=== PATIENT | female | born 1955 | race Caucasian/White ===

== ENCOUNTER → 2017-09-26 | Outpatient (CLI) | payer OTHER ==
--- NOTE | 2017-09-27 09:12 | MM ---
Reason for exam: screening (asymptomatic). Last mammogram was performed 1 year ago. History: Patient is postmenopausal. Family history of breast cancer in paternal aunt. Took estrogen for 1 year beginning at age 56. Took progesterone for 6 months beginning at age 53. Took unspecified hormones for 1 year 2 months. Physical Findings: A clinical breast exam by your physician is recommended on an annual basis and results should be correlated with mammographic findings. MG Screening Mammo w CAD Bilateral CC and MLO view(s) were taken. Prior study comparison: September 20, 2016, bilateral MG screening mammo w CAD. September 01, 2015, bilateral MG screening mammo w CAD. The breast tissue is extremely dense which could obscure a lesion on mammography. There is no discrete abnormality. No significant changes when compared with prior studies. ASSESSMENT: Negative, BI-RAD 1 RECOMMENDATION: Routine screening mammogram of both breasts in 1 year.
== END | disposition home or self-care (01) ==
LOC: RADMAMWWP 14:01
PROVIDERS: ATTEND Obstetrics & Gynecology
DX: Z12.31 Encounter for screening mammogram for malignant neoplasm of breast (principal)

== ENCOUNTER → 2018-09-27 | Outpatient (CLI) | payer BC ==
--- NOTE | 2018-10-03 09:50 | MM ---
Reason for exam: screening (asymptomatic). Last mammogram was performed 1 year ago. History: Patient is postmenopausal. Family history of breast cancer in paternal aunt. Took estrogen for 1 year beginning at age 56. Took progesterone for 6 months beginning at age 53. Took unspecified hormones for 1 year 2 months. Physical Findings: A clinical breast exam by your physician is recommended on an annual basis and results should be correlated with mammographic findings. MG 3D Screening Mammo W/Cad Bilateral CC and MLO view(s) were taken. Prior study comparison: September 26, 2017, bilateral MG screening mammo w CAD. September 20, 2016, bilateral MG screening mammo w CAD. The breast tissue is heterogeneously dense. This may lower the sensitivity of mammography. There is no discrete abnormality. ASSESSMENT: Negative, BI-RAD 1 RECOMMENDATION: Routine screening mammogram of both breasts in 1 year.
== END | disposition home or self-care (01) ==
LOC: RADMAMWWP 13:05
PROVIDERS: ATTEND Obstetrics & Gynecology
DX: Z12.31 Encounter for screening mammogram for malignant neoplasm of breast (principal)
CPT/HCPCS: 77063; 77067

== ENCOUNTER → 2019-09-29 | Outpatient (CLI) | payer BC ==
--- NOTE | 2019-10-03 12:31 | MM ---
Reason for exam: screening (asymptomatic). Last mammogram was performed 1 year ago. History: Patient is postmenopausal. Family history of breast cancer in paternal aunt. Took estrogen for 1 year beginning at age 56. Took progesterone for 6 months beginning at age 53. Took unspecified hormones for 1 year 2 months. Physical Findings: A clinical breast exam by your physician is recommended on an annual basis and results should be correlated with mammographic findings. MG 3D Screening Mammo W/Cad Bilateral CC and MLO view(s) were taken. Prior study comparison: September 27, 2018, bilateral MG 3d screening mammo w/cad. September 26, 2017, bilateral MG screening mammo w CAD. The breast tissue is heterogeneously dense. This may lower the sensitivity of mammography. There is no discrete abnormality. ASSESSMENT: Negative, BI-RAD 1 RECOMMENDATION: Routine screening mammogram of both breasts in 1 year.
== END | disposition home or self-care (01) ==
LOC: RADMAMWWP 10:01
PROVIDERS: ATTEND Obstetrics & Gynecology
DX: Z12.31 Encounter for screening mammogram for malignant neoplasm of breast (principal); Z80.3 Family history of malignant neoplasm of breast
CPT/HCPCS: 77063; 77067

== ENCOUNTER → 2020-11-17 | Outpatient (CLI) | payer OTHER ==
--- NOTE | 2020-11-19 11:05 | MM ---
Reason for exam: screening (asymptomatic). Last mammogram was performed 1 year and 2 months ago. History: Patient is postmenopausal. Family history of breast cancer in paternal aunt. Took estrogen for 1 year beginning at age 56. Took progesterone for 6 months beginning at age 53. Took unspecified hormones for 1 year 2 months. Physical Findings: A clinical breast exam by your physician is recommended on an annual basis and results should be correlated with mammographic findings. MG 3D Screening Mammo W/Cad Bilateral CC and MLO view(s) were taken. Prior study comparison: September 29, 2019, bilateral MG 3d screening mammo w/cad. September 27, 2018, bilateral MG 3d screening mammo w/cad. The breast tissue is heterogeneously dense. This may lower the sensitivity of mammography. There is no discrete abnormality. No significant changes when compared with prior studies. ASSESSMENT: Negative, BI-RAD 1 RECOMMENDATION: Routine screening mammogram of both breasts in 1 year.
== END | disposition home or self-care (01) ==
LOC: RADMAMWWP 08:13
PROVIDERS: ATTEND Obstetrics & Gynecology
DX: Z12.31 Encounter for screening mammogram for malignant neoplasm of breast (principal); Z80.3 Family history of malignant neoplasm of breast
CPT/HCPCS: 77063; 77067

== ENCOUNTER → 2022-03-03 | Outpatient (CLI) | payer OTHER ==
--- NOTE | 2022-03-07 08:37 | MM ---
Reason for Exam: Screening (asymptomatic). Last mammogram was performed 1 year(s) and 3 month(s) ago. Patient History: Menarche at age 18. First Full-Term at age 25. Left ovary removed at age 56. Right ovary removed at age 56. Hysterectomy at age 56. Postmenopausal. Currently using Estrogen, beginning at age 56 for 1 year. Currently using Progesterone, for 6 months. Paternal aunt had breast cancer at or over age 50. Risk Values: Vandana 5 year model risk: 1.3%. NCI Lifetime model risk: 5.3%. Film Views: Bilateral CC views were taken. Bilateral MLO views were taken. Prior Study Comparison: 09/27/2018 Bilateral Screening Mammogram, [facility]. 09/29/2019 Bilateral Screening Mammogram, [facility]. 11/17/2020 Bilateral Screening Mammogram, [facility]. Tissue Density: The breast tissue is heterogeneously dense. This may lower the sensitivity of mammography. Findings: Analyzed By CAD. There is no suspicious group of microcalcifications or new suspicious mass in either breast. Overall Assessment: Negative, BI-RAD 1 Management: Screening Mammogram of both breasts in 1 year. A clinical breast exam by your physician is recommended on an annual basis and results should be correlated with mammographic findings. Electronically signed and approved by: Dudley Bae M.D.
== END | disposition home or self-care (01) ==
LOC: RADMAMWWP 16:28
PROVIDERS: ATTEND Obstetrics & Gynecology
DX: Z12.31 Encounter for screening mammogram for malignant neoplasm of breast (principal); Z80.3 Family history of malignant neoplasm of breast
CPT/HCPCS: 77063; 77067

== ENCOUNTER → 2023-03-06 | Outpatient (CLI) | payer MEDICARE, BC ==
--- NOTE | 2023-03-07 19:05 | MM ---
Reason for Exam: Screening (asymptomatic). Last screening mammogram was performed 12 month(s) ago. Patient History: Menarche at age 18. First Full-Term at age 25. Left ovary removed at age 56. Right ovary removed at age 56. Hysterectomy at age 56. Postmenopausal. Currently using Estrogen, beginning at age 56 for 1 year. Currently using Progesterone, for 6 months. Paternal aunt had breast cancer at or over age 50. Risk Values: Vandana 5 year model risk: 1.4%. NCI Lifetime model risk: 5.1%. Prior Study Comparison: 09/29/2019 Bilateral Screening Mammogram, [facility]. 11/17/2020 Bilateral Screening Mammogram, [facility]. 03/03/2022 Bilateral MG 3D screening mammo w/cad, [facility]. Tissue Density: The breast tissue is heterogeneously dense. This may lower the sensitivity of mammography. Findings: Analyzed By CAD. Chronic nodularity lateral right breast. Areas of asymmetric density did not persist on 3 images. There is no suspicious group of microcalcifications or new suspicious mass in either breast. Overall Assessment: Benign, BI-RAD 2 Management: Screening Mammogram of both breasts in 1 year. . Patient should continue monthly self-breast exams. A clinical breast exam by your physician is recommended on an annual basis. This exam should not preclude additional follow-up of suspicious palpable abnormalities. Note on Vandana scores and lifetime risk: 1. A Vandana score greater than 3% is considered moderate risk. If this is the case, consider specialist referral to assess eligibility for a risk reducing agent. 2. If overall lifetime risk for the development of breast cancer is 20% or higher, the patient may qualify for future screening with alternating mammogram and breast MRI. Electronically signed and approved by: Josue Sanders M.D. Radiologist
== END | disposition home or self-care (01) ==
LOC: RADMAMWWP 16:11
PROVIDERS: ATTEND Family Medicine
DX: Z12.31 Encounter for screening mammogram for malignant neoplasm of breast (principal); Z78.0 Asymptomatic menopausal state; Z80.3 Family history of malignant neoplasm of breast
CPT/HCPCS: 77063; 77067

== ENCOUNTER → 2023-03-06 | Outpatient (CLI) | payer MEDICARE, BC ==
--- NOTE | 2023-03-07 19:01 | BD ---
EXAMINATION TYPE: Axial Bone Density DATE OF EXAM: 03/06/2023 CLINICAL HISTORY: 67 years old Female. ICD-10 CODE: M89.9 DISORDER OF BONE Height: 64.5 Weight: 163.0 FRAX RISK QUESTIONS: Alcohol (3 or more units per day): no Family History (Parent hip fracture): no Glucocorticoids (More than 3mos): no (Ex: prednisone, prednisolone, methylprednisolone, dexamethasone, and hydrocortisone). History of Fracture in Adulthood: yes Secondary Osteoporosis: 1. Type 1 Diabetes: yes 2. Hyperthyroidism: no 3. Menopause before 45: no 4. Malnutrition: no 5. Chronic liver disease: no Rheumatoid Arthritis: no Current Tobacco Use: no RISK FACTORS HISTORY OF: Hip Fracture (Right/Left): left Surgery to Spine/Hip(right/left)/Wrist (right/left): yes- left When: 10 years ago Family History of Osteoporosis: no Active: no Diet low in dairy products/other sources of calcium: no Postmenopausal woman: yes Take estrogen and/or progesterone medications: yes How lon years Lost more than 2 inches in height since high school: no MEDICATIONS: Thyroid Medications: armour thyroid How Lon years Additional History: EXAM MEASUREMENTS: Bone mineral densitometry was performed using the [employer] System. Bone mineral density as measured about the Lumbar spine is: ----- L1-L4(G/cm2): 1.070 T Score Values are as follows: ----- L1: 1.5 ----- L2: -1.0 ----- L3: -0.2 ----- L4: -1.2 ----- L1-L4: -0.9 Z Score Values are as follows: ----- L1: -0.2 ----- L2: 0.3 ----- L3: 1.1 ----- L4: 0.1 ----- L1-L4: 0.4 Bone mineral density : baseline Bone mineral density about the R hip (g/cm2): 0.894 T Score values are as follows: -----R Neck: 1.5 -----R Total: -0.2 Z Score values are as follows: -----R Neck: -0.9 -----R Total: 0.1 Bone mineral density : baseline FRAX%s: The graph provided illustrates a 14.5% chance for a major osteoporotic fx and a 1.5 % chance for the hips probability for fx in 10 years time. IMPRESSION: Osteopenia (T Score between -2.5 and -1). There is slightly increased risk of fracture and the patient may be considered for treatment. Re-Screen 2-5 years. NOTE: T-SCORE=SD OF THE YOUNG ADULT MEAN.
== END | disposition home or self-care (01) ==
LOC: RADBDWWP 16:09
PROVIDERS: ATTEND Family Medicine
DX: M89.9 Disorder of bone, unspecified (principal)
CPT/HCPCS: 77080

== ENCOUNTER → 2024-08-12 | Outpatient (CLI) | payer MEDICARE, BC ==
--- NOTE | 2024-08-13 18:33 | US ---
EXAMINATION TYPE: US thyroid st tissue head/neck DATE OF EXAM: 08/12/2024 COMPARISON: NONE CLINICAL INDICATION: Female, 68 years old with history of E03.9 HYPOTHYROIDISM, UNSPECIFIED; Hypothyr oid, pt states on thyroid meds x many years TECHNIQUE: Grayscale and color Doppler imaging of the thyroid gland. FINDINGS: GLAND SIZE: Right Lobe: 4.0 x 1.4 x 1.2 cm Overall Parenchyma: Slightly heterogeneous Left Lobe: 3.4 x 1.5 x 1.2 cm Overall Parenchyma: Heterogeneous Isthmus Thickness: 0.3 cm NODULES RIGHT: # of nodules measured on right: 0 LEFT: # of nodules measured on left: 0 ISTHMUS: # of nodules measured in the isthmus: 0 Bilateral neck scanned, no evidence of lymphadenopathy. Heterogeneous thyroid without evidence of nod ules IMPRESSION: No suspicious thyroid nodules [email or web address] [facility], , 08/13/2024 6:31 PM
== END | disposition home or self-care (01) ==
LOC: RADUSWWP 15:59
PROVIDERS: ATTEND Obstetrics & Gynecology
DX: E03.9 Hypothyroidism, unspecified (principal)
CPT/HCPCS: 76536

== ENCOUNTER → 2025-03-31 | Outpatient (CLI) | payer MEDICARE, BC ==
--- NOTE | 2025-04-01 08:24 | MM ---
Reason for Exam: Screening (asymptomatic). Last mammogram was performed 2 year(s) and 1 month(s) ago. Patient History: Menarche at age 18. First Full-Term at age 25. Left ovary removed at age 56. Right ovary removed at age 56. Hysterectomy at age 56. Postmenopausal. Currently using Estrogen, beginning at age 56 for 1 year. Currently using Progesterone, for 6 months. Paternal aunt had breast cancer, age 50. Risk Values: Vandana 5 year model risk: 1.4%. NCI Lifetime model risk: 4.8%. Prior Study Comparison: 11/17/2020 Bilateral Screening Mammogram, [facility]. 03/03/2022 Bilateral MG 3D screening mammo w/cad, [facility]. 03/06/2023 Bilateral MG 3D screening mammo w/cad, [facility]. Tissue Density: The breasts are heterogeneously dense, which may obscure small masses. Findings: Analyzed By CAD. Right breast: There is no suspicious group of microcalcifications or new suspicious mass. Left breast: New asymmetry left breast MLO view 6.6 cm the nipple measuring middle depth and slightly inferior. Not fully seen on cc view. Overall Assessment: Incomplete: need additional imaging evaluation, BI-RAD 0 Management: Diagnostic Mammogram of the left breast. Spot compression imaging left MLO view middle to posterior depth. [facility] will attempt to contact patient to return for supplemental views and ultrasound if indicated. Patient should continue monthly self-breast exams. A clinical breast exam by your physician is recommended on an annual basis. This exam should not preclude additional follow-up of suspicious palpable abnormalities. Note on Vandana scores and lifetime risk: 1. A Vandana score greater than 3% is considered moderate risk. If this is the case, consider specialist referral to assess eligibility for a risk reducing agent. 2. If overall lifetime risk for the development of breast cancer is 20% or higher, the patient may qualify for future screening with alternating mammogram and breast MRI. [facility], , 04/01/2025 8:20 AM. Electronically signed and approved by: Wolfgang Corley DO
== END | disposition home or self-care (01) ==
LOC: RADMAMWWP 16:48
PROVIDERS: ATTEND Obstetrics & Gynecology
DX: Z12.31 Encounter for screening mammogram for malignant neoplasm of breast (principal); R92.333 Mammographic heterogeneous density, bilateral breasts; Z78.0 Asymptomatic menopausal state; Z80.3 Family history of malignant neoplasm of breast
CPT/HCPCS: 77063; 77067

== ENCOUNTER → 2025-04-02 | Outpatient (CLI) | payer MEDICARE, BC ==
--- NOTE | 2025-04-02 12:04 | MM ---
Reason for Exam: Additional evaluation requested from abnormal screening. Last screening mammogram was performed less than 1 month ago. Patient History: Menarche at age 18. First Full-Term at age 25. Left ovary removed at age 56. Right ovary removed at age 56. Hysterectomy at age 56. Postmenopausal. Currently using Estrogen, beginning at age 56 for 1 year. Currently using Progesterone, for 6 months. Paternal aunt had breast cancer, age 50. Risk Values: Vandana 5 year model risk: 1.4%. NCI Lifetime model risk: 4.8%. Prior Study Comparison: 03/03/2022 Bilateral MG 3D screening mammo w/cad, [facility]. 03/06/2023 Bilateral MG 3D screening mammo w/cad, [facility]. 03/31/2025 Bilateral MG 3D screening mammo w/cad, [facility]. Tissue Density: Left: The breasts are heterogeneously dense, which may obscure small masses. Findings: Analyzed By CAD. There remains a mass in the lower aspect of the MLO view approximately 5.6 cm from the nipple. There remains a mass in the lower aspect of the MLO view approximately 5.6 cm from the nipple. No clearly seen on cc view. There remains a asymmetry in the lower aspect of the MLO view approximately 5.6 cm from the nipple. No clearly seen on cc view. Overall Assessment: Incomplete: need additional imaging evaluation, BI-RAD 0 Management: Diagnostic Breast Ultrasound of the left breast. Ultrasound imaging of the lower half of the left breast proximal 5-6 cm from the nipple. Results were given to the patient verbally at the time of exam. Patient should continue monthly self-breast exams. A clinical breast exam by your physician is recommended on an annual basis. This exam should not preclude additional follow-up of suspicious palpable abnormalities. Note on Vandana scores and lifetime risk: 1. A Vandana score greater than 3% is considered moderate risk. If this is the case, consider specialist referral to assess eligibility for a risk reducing agent. 2. If overall lifetime risk for the development of breast cancer is 20% or higher, the patient may qualify for future screening with alternating mammogram and breast MRI. [facility], , 04/02/2025 12:01 PM. Electronically signed and approved by: Wolfgang Corley DO
--- NOTE | 2025-04-02 12:37 | USB ---
Reason for Exam: Additional evaluation requested from abnormal screening. Patient History: Menarche at age 18. First Full-Term at age 25. Left ovary removed at age 56. Right ovary removed at age 56. Hysterectomy at age 56. Postmenopausal. Currently using Estrogen, beginning at age 56 for 1 year. Currently using Progesterone, for 6 months. Paternal aunt had breast cancer, age 50. Risk Values: Vandana 5 year model risk: 1.4%. NCI Lifetime model risk: 4.8%. Prior Study Comparison: 03/03/2022 Bilateral MG 3D screening mammo w/cad, [facility]. 03/06/2023 Bilateral MG 3D screening mammo w/cad, [facility]. 03/31/2025 Bilateral MG 3D screening mammo w/cad, [facility]. Findings: The whole breast of the left breast, the axilla of the left breast and the retroareolar of the left breast were scanned. Technique utilized:US breast workup complete LT Image; Ultrasound imaging of: All 4 quadrants, the retroareolar region and axilla. Hypoechoic irregular shaped mass that is taller than wide at 9:00 6 cm from the nipple measuring 10 x 10 x 4 mm. Negative left axilla. Overall Assessment: Highly suggestive of malignancy, BI-RAD 5 Management: Ultrasound Core Biopsy of the left breast. A clinical breast exam by your physician is recommended on an annual basis and results should be correlated with mammographic findings. This exam should not preclude additional follow-up of suspicious palpable abnormalities. Results were given to the patient verbally at the time of exam. [facility], , 04/02/2025 12:25 PM. Electronically signed and approved by: Wolfgang Corley DO
== END | disposition home or self-care (01) ==
LOC: RADMAMWWP 11:31
PROVIDERS: ATTEND Obstetrics & Gynecology
DX: R92.8 Other abnormal and inconclusive findings on diagnostic imaging of breast (principal); R92.332 Mammographic heterogeneous density, left breast; N63.21 Unspecified lump in the left breast, upper outer quadrant; Z78.0 Asymptomatic menopausal state; Z80.3 Family history of malignant neoplasm of breast
CPT/HCPCS: 77065; 76641; G0279; 77061

== ENCOUNTER → 2025-04-16 | Day surgery (SDC) | payer MEDICARE, BC ==
--- NOTE | 2025-04-29 08:17 | MM ---
Reason for Exam: Post Procedure Mammogram. Last screening mammogram was performed less than 1 month ago. Patient History: Menarche at age 18. First Full-Term at age 25. Left ovary removed at age 56. Right ovary removed at age 56. Hysterectomy at age 56. Postmenopausal. Currently using Estrogen, beginning at age 56 for 1 year. Currently using Progesterone, for 6 months. Paternal aunt had breast cancer, age 50. Risk Values: Vandana 5 year model risk: 1.4%. NCI Lifetime model risk: 4.8%. Prior Study Comparison: 03/06/2023 Bilateral MG 3D screening mammo w/cad, [facility]. 03/31/2025 Bilateral MG 3D screening mammo w/cad, [facility]. 04/02/2025 Left MG 3D work up w/cad , [facility]. Tissue Density: Left: The breasts are heterogeneously dense, which may obscure small masses. Pathology Description: Location: 9 o'clock. Needle Type: Mammotome Cores: 4 Gauge: 13 The procedure of ultrasound guided core biopsy was explained to the patient. Benefits, alternatives, and risks were discussed. An informed consent was then obtained. The patient was placed in supine positioning for imaging and for the procedure. Preprocedure ultrasound redemonstrates irregular hypoechoic 1.1 cm area 9:00 position 6 cm distance from nipple with adjacent slightly smaller hypoechoic area 10:00 position. The overlying skin was prepped and draped in usual sterile fashion. Lidocaine buffered with bicarbonate was used as anesthetic into the skin and subcutaneous tissue. Lidocaine with epinephrine is used as anesthetic in the deeper tissue up to area of concern in the left breast. Under ultrasound guidance, a vacuum assisted biopsy gun device was used to obtain 4 core samples. Following this, a biopsy clip was left in region of area of primary concern 9:00 aspect. The patient tolerated the procedure well without any immediate complication. The patient was kept in the radiology department for short stay after the procedure and then discharged home in stable condition. Postprocedure mammogram: The patient was transferred to mammography for physician ordered post procedure mammogram for clip placement verification. Post procedure mammogram demonstrates appropriate placement of clip. Impression: Successful, uncomplicated ultrasound guided core biopsy of area of concern in the left breast, full pathology results to follow. Intermediate index of suspicion noted at time of procedure. [facility], , 04/16/2025 3:34 PM. Pathology Results: Result: Malignant, Invasive ductal carcinoma. Pathology and radiology were reviewed. Findings are concordant. LEFT BREAST, NINE O'CLOCK, ULTRASOUND GUIDED NEEDLE CORE BIOPSY: Invasive moderately differentiated ductal carcinoma (Grade 2). See Surgical Pathology Cancer Case Summary and Comment. Overall Assessment: Malignant Assessment: MG diagnostic mammo LT wo CAD. - Left: Known biopsy proven malignancy, BI-RAD 6. Management: Surgical Consultation of the left breast. Electronically signed and approved by: Dudley Bae M.D.
== END ==
LOC: RADUSWWP 12:17
PROVIDERS: ATTEND Surgery
DX: C50.812 Malignant neoplasm of overlapping sites of left female breast (principal); R92.8 Other abnormal and inconclusive findings on diagnostic imaging of breast; Z78.0 Asymptomatic menopausal state; Z80.3 Family history of malignant neoplasm of breast; Z90.721 Acquired absence of ovaries, unilateral
CPT/HCPCS: 88305; 88342; 88341; 77065; 19083; A4648

== ENCOUNTER → 2025-04-24 | Outpatient (CLI) | payer MEDICARE, BC ==
--- NOTE | 2025-04-24 08:20 | P.GSCN ---
History of Present Illness Consult date: 04/24/25 Reason for Consult: Left breast invasive ductal carcinoma Requesting physician: Candy Stephens History of present illness: Tarsha is a 69-year-old female seen in consultation for Dr. Stephens regarding a left breast biopsy-proven invasive ductal carcinoma. She underwent a bilateral screening mammogram on 03-31-2025 which revealed dense breast and in the left breast and new asymmetry 6.6 cm from the nipple measuring middle depth and slightly inferior. Additional radiographs were requested. A left breast mammogram and ultrasound were performed on 04-02-2025. This revealed a 10 x 10 mm irregular shaped mass taller than wide at 9:00. A biopsy was performed by ultrasound guidance on 04 16 25. Pathology revealed invasive moderately differentiated ductal carcinoma grade 2. This is ER/FL positive HER2 equivocal. She did not feel any lumps masses or nodules of concern in either breast. This was a routine mammogram. She is not complaining of any nipple discharge or skin changes. She has never had any surgery on her breast. Caffeine: 1 cup/day nicotine: none chocolate: occasionally hormone: currently has a pellet has been doing that for 2017; placed every 5 months, last time placed about 4 months ago Family History: mother: colon cancer paternal aunt: breast cancer maternal uncle: lung cancer Hormonal History: menarche: 18 , age at : 25, breast fed: no menopause: hysterectomy at 59, periods stopped about 52 Surgical History: tonsil hysterectomy, took ovaries: done for abnormal pap smear, no cancer tubal ligation 5 surgeries on left leg trigger finger Medical History: diabetic type 1 for 57 years gastroporesis diabetic retinapothy Bridget's thyroiditis Social History: nicotine: none alcohol: none crugs: none Review of Systems - Constitutional Denies fever, Denies weight loss - EENT Eyes: bilateral as per HPI Ears: deny: decreased hearing, tinnitus Ears, nose, mouth and throat: Denies dysphagia - Breasts bilateral: as per HPI - Cardiovascular Denies chest pain, Denies shortness of breath - Respiratory Denies cough, Denies 7 - Gastrointestinal Reports as per HPI - Genitourinary Genitourinary: Denies dysuria, Denies hematuria Menstruation: Reports as per HPI - Musculoskeletal Reports as per HPI - Integumentary Denies rash, Denies unusual bruising - Neurological Denies headaches, Denies syncope - Psychiatric Reports as per HPI - Endocrine Reports as per HPI - Hematologic/Lymphatic Reports as per HPI - Allergic/Immunologic Reports as per HPI Past Medical History Past Medical History: Diabetes Mellitus, Thyroid Disorder Additional Past Medical History / Comment(s): Type 1 DM. Gastroparesis. Diabetic neuropathy, no peripheal vision History of Any Multi-Drug Resistant Organisms: None Reported Past Surgical History: Section, Hysterectomy, Orthopedic Surgery, Tonsillectomy, Tubal Ligation Additional Past Surgical History / Comment(s): ankle fracture with surgical repair. Carpal tunnel surgery and trigger finger surgery. Femur fracture with repair x2. Eye surgery Past Anesthesia/Blood Transfusion Reactions: Postoperative Nausea & Vomiting (PONV) Past Psychological History: No Psychological Hx Reported Smoking Status: Never smoker Past Alcohol Use History: None Reported Past Drug Use History: None Reported Medications and Allergies Home Medications Medication Instructions Recorded Confirmed Type Humalog Insulin Pump 29 units SQ CONTINUOUS 07/20/14 04/03/25 History Pravastatin Sodium [Pravachol] 20 mg PO HS 07/20/14 04/03/25 History diphenhydrAMINE [Benadryl] 1 cap PO DAILY 07/22/14 04/03/25 History Thyroid,Pork [Lamar Thyroid] 120 mg PO DAILY 04/03/25 04/03/25 History Allergies Allergy/AdvReac Type Severity Reaction Status Date / Time No Known Allergies Allergy Verified 04/03/25 12:04 Surgical - Exam - General moderate distress - Eyes normal ocular movement - ENT no hearing loss - Neck trachea midline - Respiratory normal respiratory effort, clear to auscultation - Cardiovascular Rhythm: regular Heart Sounds: normal: S1, S2 - Abdomen Abdomen: soft, non tender, no guarding, no rigid, no rebound - Integumentary normal; turgor - Neurologic no disoriented, no combative - Musculoskeletal normal gait - Psychiatric oriented to time, oriented to person, oriented to place, speech is normal, memory intact Breast Exam: BRA: 38B inspection: Bilateral grade 2 ptosis Palpation: Right breast: Multi positional exam no dominant masses or nodules of concern Right axilla: No adenopathy of concern Left breast: Multi positional exam biopsy site clean and dry no evidence of infection or hematoma no dominant masses or nodules of concern Left axilla: No adenopathy of concern Results Mammogram and ultrasound personally reviewed and interpreted Assessment and Plan Assessment: Impression: 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 Petty Stephens
[2025-04-24 09:05] VITALS: BP 145/74; PULSE 62; RESP 16; TEMP 98.6
== END ==
LOC: WWCWWP 07:32
PROVIDERS: ATTEND Surgery
DX: C50.912 Malignant neoplasm of unspecified site of left female breast (principal); E11.9 Type 2 diabetes mellitus without complications; E06.3 Autoimmune thyroiditis